=== PATIENT | female | born 2000 | race African-American/Black ===

== ENCOUNTER 2025-03-11 12:10 | Outpatient (CLI) | payer BC, OTHER, SELFPAY ==
[2025-03-11 13:14] LABS: Basophils Percent Auto 0.4 % (0.2-1.2); Eosinophils Absolute Auto 0.1 K/mm3 (0-0.3); Eosinophils Percent Auto 1.7 % (0-4.4); Hematocrit 36.6 % (37.0-47.0); Hemoglobin 12.3 g/dL (12.0-15.0); Immature Granulocyte Absolute 0.03 K/mm3 (0.00-0.031); Immature Granulocyte Percent A 0.6 % (0-0.5); Lymphocytes Absolute Auto 1.32 K/mm3 (0.9-3.2); Lymphocytes Percent Auto 24.8 % (18.3-44.2); Mean Corpuscular HGB Conc 33.6 g/dl (32-36); Mean Corpuscular Hemoglobin 31.8 pg (26-34); Mean Corpuscular Volume 94.6 fl (80-100); Monocytes Absolute Auto 0.5 K/mm3 (0.1-0.6); Monocytes Percent Auto 9.2 % (2.6-8.5); Neutrophils Absolute Auto 3.4 K/mm3 (1.3-6.7); Neutrophils Percent Auto 63.3 % (45.5-73.1); Platelet Count Result 265 k/mm3 (150-375); Red Blood Count 3.87 M/mm3 (4.2-5.4); White Blood Count 5.3 K/mm3 (4.5-10.0)
[2025-03-11 13:52] LABS: Syphilis IgG/IgM Antibody Negative (Negative)
[2025-03-11 13:55] LABS: Hepatitis B Surface Antigen Negative (Negative); Rubella IgG Antibody 11.5 IU/ML
[2025-03-11 14:02] LABS: HIV 1/2 Ab P24 Ag Result Negative (Negative)
[2025-03-13 03:38] LABS: CMV IgG Antibody >10.00 U/mL; Varicella IgG Antibody 9.49 S/CO
== END 2025-03-11 12:11 | disposition home or self-care (01) ==
LOC: ANHLAB 12:40
PROVIDERS: Visit Provider Obstetrics & Gynecology
DX: N91.2 Amenorrhea, unspecified (principal)
CPT/HCPCS: 36415; 81220; 81329; 84702; 85025; 85660; 86593; 86644; 86703; 86747; 86762; 86787; 86850; 86900; 86901; 87086; 87340; G0432

== ENCOUNTER 2025-04-10 08:29 | Emergency (ER) | payer OTHER, SELFPAY ==
[2025-04-10] VITALS (10 sets, daily range): BP systolic 112–145; BP diastolic 63–96; PULSE 83–113; RESP 16–20; TEMP 36.6; O2SAT 100
--- NOTE | ~2025-04-10 | CT_ITS ---
Non-contrast Head CT History: Syncope Technique: Axial non-contrast imaging of the brain was performed. Dose reduction technique was used on this scan by utilizing automated exposure control and iterative reconstruction technique. The dose -length product (DLP) was 605.33 mGy-cm. Findings: There is no evidence of intracranial hemorrhage, mass lesion, or acute infarct. Brain par enchyma appears normal. The ventricles and subarachnoid spaces are normal in size. The calvarium ap pears normal. The visualized paranasal sinuses and mastoid air cells are clear. Impression: No significant abnormality seen. Reviewed, dictated and finalized at location . Impression: No significant abnormality seen.
--- NOTE | ~2025-04-10 | XR_ITS ---
EXAMINATION: XR chest 2V DATE: 04/10/2025 09:11 INDICATION: Syncope. TECHNIQUE: frontal and lateral views of the chest were obtained. COMPARISON: None FINDINGS: The lungs are clear with no focal airspace opacities, pulmonary edema, pleural effusion or pneumothor ax. The cardiomediastinal silhouette is normal. There is lead shielding about the visualized upper ab domen. IMPRESSION: 1. No acute cardiopulmonary disease. Reviewed, dictated and finalized at location A.
--- NOTE | 2025-04-10 08:37 | ECG_ITS ---
Test Date: 2025-04-10 08:52:03 Measurements Intervals [place] Rate: 83 P: 57 NC: 155 QRS: 53 QRSD: 86 T: 34 QT: 348 QTc: 411 Interpretive Statements SINUS RHYTHM WITH SINUS ARRHYTHMIA MODERATE T-WAVE ABNORMALITY, CONSIDER ANTERIOR ISCHEMIA [-0.1+ mV T WAVE IN V3/V4] No previous ECG available for comparison Electronically Signed On 04-10-2025 15:07:49 CDT by Marilee Ordonez M.D.
[2025-04-10 08:57] LABS: Basophils Percent Auto 0.3 % (0.2-1.2); Eosinophils Absolute Auto 0.2 K/mm3 (0-0.3); Eosinophils Percent Auto 3.4 % (0-4.4); Hematocrit 30.9 % (37.0-47.0); Hemoglobin 10.3 g/dL (12.0-15.0); Immature Granulocyte Absolute 0.03 K/mm3 (0.00-0.031); Immature Granulocyte Percent A 0.4 % (0-0.5); Lymphocytes Absolute Auto 1.07 K/mm3 (0.9-3.2); Lymphocytes Percent Auto 14.9 % (18.3-44.2); Mean Corpuscular HGB Conc 33.3 g/dl (32-36); Mean Corpuscular Hemoglobin 32.3 pg (26-34); Mean Corpuscular Volume 96.9 fl (80-100); Mean Platelet Volume 8.8 fl (7.4-10.4); Monocytes Absolute Auto 0.6 K/mm3 (0.1-0.6); Monocytes Percent Auto 8.8 % (2.6-8.5); Neutrophils Absolute Auto 5.2 K/mm3 (1.3-6.7); Neutrophils Percent Auto 72.2 % (45.5-73.1); Platelet Count Result 233 k/mm3 (150-375); Red Blood Count 3.19 M/mm3 (4.2-5.4); Red Cell Distribution Width 13.2 % (11.5-14.5); White Blood Count 7.2 K/mm3 (4.5-10.0)
[2025-04-10 09:07] LABS: Alanine Aminotransferase 16 U/L (6-35); Albumin Level 3.9 g/dL (3.5-5.1); Alkaline Phosphatase 62 U/L (38-126); Anion Gap 10 mmol/L (4-12); Aspartate Amino Transferase 24 U/L (14-36); Bilirubin,Total 0.2 mg/dL (0.2-1.3); Blood Urea Nitrogen 9 mg/dL (7-17); Calcium 9.6 mg/dL (8.4-10.2); Carbon Dioxide 22 mmol/L (22-30); Chloride 105 mmol/L (98-107); Estimated CRCL calculation 130 ml/min; Estimated Glomerular Filt Rate > 60; Glucose 77 mg/dL (65-110); Potassium 3.7 mmol/L (3.4-5.0); Sodium 137 mmol/L (137-145)
[2025-04-10] MEDS: SODIUM CHLORIDE 0.9% IV 1,000 ML 999 ML IV CONT (09:24)
[2025-04-10 09:55] LABS: Troponin I < 0.012 ng/mL (0.000-0.034)
--- NOTE | 2025-04-10 10:23 | ED.SYNCOPE ---
HPI - Syncope General Chief Complaint: Syncope Stated Complaint: 20 weeks , passed out at work Time Seen by Provider: 04/10/25 09:10 Source: patient Mode of arrival: ambulatory Limitations: no limitations History of Present Illness HPI narrative: This is a 25-year-old female that presents to the emergency department after a syncopal episode this morning. Reports she was finishing a 9 hour shift. 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 She started to feel hot, had a mild throbbing discomfort in her head. She then woke up on the floor. Reports she has not passed out before. She is currently 20 weeks . This is her first . Denies chest pain, shortness of breath, palpitations. Related Data Home Medications ?Medication ?Instructions ?Recorded ?Confirmed ?Last Taken ?Type No Home Medications 03/31/25 03/31/25 Unknown History Allergies Allergy/AdvReac Type Severity Reaction Status Date / Time No Known Allergies Allergy Verified 03/31/25 14:25 Review of Systems Review of Systems: CONSTITUTIONAL: Denies fever EYES: Denies visual changes CARDIOVASCULAR: Denies chest pain, palpitations, or edema. RESPIRATORY: Denies dyspnea. GASTROINTESTINAL: Denies vomiting NEUROLOGIC: Denies numbness, or weakness. All systems reviewed & are unremarkable except as noted in HPI and below PMFSH Past Medical History Medical History PCR DNA positive for HSV1 Family History Family History Grandparent Hypertension paternal grandmother Mother H/O ovarian cancer Social History Social History Smoking status: Former smoker Second hand tobacco smoke exposure: No Smoking end date: 11/12/24 Alcohol intake: never Substance use: former Substance use type: marijuana Last use: 11/12/2024 Do You Feel Safe in your Home?: Yes Lack of Transportation: No Lack of Food: Often True Current Housing: I Have Housing Concerned About Future Housing: YES Difficulty Paying Gas/Electric Bills: YES Difficulty Paying for Meds: YES Currently Unemployed: No Education: Bachelor's Degree Difficulty w/ Childcare or Family Care: No Living arrangements: with roommate(s) Occupation/Education: occupation 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 HEAD: Normocephalic, atraumatic. EYES: PERRLA and EOMI. ENT: Nares clear, no rhinorrhea or epistaxis. Mucous membranes moist. Oropharynx without tonsillar hypertrophy exudate or other lesions. Bilateral TMs pearly gibson non-bulging NECK: Supple. No adenopathy or masses. CHEST: Clear to auscultation. No respiratory distress. No wheezes rales or rhonchi HEART: Regular rate and rhythm. No murmur heard. Normal peripheral pulses. ABDOMEN: Gravid, nontender, normal active bowel sounds. EXTREMITIES: Normal range of motion. No edema. Strength equal in bilateral upper and lower extremities (5/5) SKIN: Warm, dry, no rash. NEURO: No focal deficits. Alert and oriented x3. CN II-XII grossly intact PSYCH: Normal mood and affect Course Course Emergency Course: Patient updated on her workup and agrees with plan of care. 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 Encourage compression socks at work Date: 04/10/25 Vital Signs Vital signs: Vital Signs Temperature 97.9 F 04/10/25 08:40 Pulse Rate 95 04/10/25 08:40 Respiratory Rate 17 04/10/25 08:40 Blood Pressure 131/78 04/10/25 08:40 Pulse Oximetry 100 04/10/25 08:40 Oxygen Delivery Room Air 04/10/25 08:40 Temperature 97.9 F 04/10/25 08:40 Pulse Rate 83 04/10/25 11:31 Respiratory Rate 17 04/10/25 11:31 Blood Pressure 116/71 04/10/25 11:31 Pulse Oximetry 100 04/10/25 11:31 Oxygen Delivery Room Air 04/10/25 08:40 MDM - Syncope MDM Narrative Medical decision making narrative: Patient presents to the emergency department after a syncopal episode this morning. Patient had been standing for prolonged. After a long work shift. She does also endorse that she does not believe she kept up with her hydration and had not eaten much. This is also her 1st , she is currently 20 weeks. Normal heart tones noted. She does not have any related concerns. Her vitals are stable. She did get tachycardic with orthostatics, but her blood pressure went up. She was mildly dizzy at this time. She was hydrated with a L of IV fluids with relief. Cbc shows normocytic anemia hemoglobin 10.3. Metabolic panel without concerning findings. Urine without evidence of infection. EKG without acute changes and her baseline troponin is negative. CT brain without acute findings. Chest x-ray without acute cardiopulmonary abnormality. Patient was updated on her workup and agrees with plan of care. She is to follow up with her OB. She was given warnings to return to the ER Differential Diagnosis Differential diagnosis: Likely syncope due to orthostatic hypotension, vasovagal syncope and dehydration Lab Data Attestation: I reviewed the patient's lab results. 04/10/25 08:51 04/10/25 08:51 Labs: Lab Results 04/10/25 04/10/25 Range/Units 08:51 10:31 WBC 7.2 (4.5-10.0) K/mm3 RBC 3.19 L (4.2-5.4) M/mm3 Hgb 10.3 L (12.0-15.0) g/dL Hct 30.9 L (37.0-47.0) % MCV 96.9 (80-100) fl MCH 32.3 (26-34) pg MCHC 33.3 (32-36) g/dl RDW 13.2 (11.5-14.5) % Plt Count 233 (150-375) k/mm3 MPV 8.8 (7.4-10.4) fl Immature Gran % (Auto) 0.4 (0-0.5) % Neut % (Auto) 72.2 (45.5-73.1) % Lymph % (Auto) 14.9 L (18.3-44.2) % Richardson % (Auto) 8.8 H (2.6-8.5) % Eos % (Auto) 3.4 (0-4.4) % Baso % (Auto) 0.3 (0.2-1.2) % Lymph # (Auto) 1.07 (0.9-3.2) K/mm3 Richardson # (Auto) 0.6 (0.1-0.6) K/mm3 Eos # (Auto) 0.2 (0-0.3) K/mm3 Baso # (Auto) 0.0 (0.0-0.1) K/mm3 Abs Immat Gran (auto) 0.03 (0.00-0.031) K/mm3 Absolute Neuts (auto) 5.2 (1.3-6.7) K/mm3 Absolute Nucleated RBC 0.000 (0.0-0.012) K/mm3 Nucleated RBC % 0.0 (0.0-0.2) % Sodium 137 (137-145) mmol/L Potassium 3.7 (3.4-5.0) mmol/L Chloride 105 (98-107) mmol/L Carbon Dioxide 22 (22-30) mmol/L Anion Gap 10 (4-12) mmol/L BUN 9 (7-17) mg/dL Creatinine 0.50 L (0.7-1.0) mg/dL Estim Creat Clear Calc 130 ml/min Estimated GFR > 60 (59 - ) Glucose 77 (65-110) mg/dL Calcium 9.6 (8.4-10.2) mg/dL Total Bilirubin 0.2 (0.2-1.3) mg/dL AST 24 (14-36) U/L ALT 16 (6-35) U/L Alkaline Phosphatase 62 (38-126) U/L Troponin I < 0.012 (0.000-0.034) ng/mL Total Protein 7.0 (6.3-8.2) g/dL Albumin 3.9 (3.5-5.1) g/dL Urine Color Yellow (Yellow) Urine Appearance Clear (Clear) Urine pH 6.5 (5.0-9.0) Ur Specific Benson 1.009 (1.001-1.035) Urine Protein Negative (Negative) mg/dL Urine Glucose (UA) Negative (Negative) mg/dL Urine Ketones Negative (Negative) mg/dL Ur Blood (Man) Negative (Negative) Urine Nitrate Negative (Negative) Urine Bilirubin Negative (Negative) Urine Urobilinogen 0.2 (<2.0) mg/dL Leukocyte Esterase Rfl Negative (Negative) BRETT/UL Imaging Data Radiologist's impression: ITS Impressions Chest X-Ray 04/10/25 09:37 IMPRESSION: 1. No acute cardiopulmonary disease. Head CT 04/10/25 11:06 Impression: No significant abnormality seen. ECG Data EKG #1: ECG completion date: 04/10/25 EKG Interpretation: normal rate, sinus rhythm, no ST changes and normal QT Critical Care Time Critical Care Time Critical Care Time: No Discharge Plan Discharge Clinical Impression: Syncope Qualifiers: Syncope type: unspecified Qualified Code(s): R55 - Syncope and collapse Anemia Qualifiers: Anemia type: unspecified type Qualified Code(s): D64.9 - Anemia, unspecified Patient Disposition: Home Condition: Stable Instructions: Syncope (ED), Anemia (ED) Additional Instructions: Return to the emergency department if you experience fever, chest pain, shortness of breath, abdominal pain with nausea and vomiting, weakness, numbness, you pass out again, or any other symptoms that are concerning to you. Your blood work and imaging here are largely reassuring. You are mildly anemic Remain well hydrated. Small, frequent meals. Wear compression socks while you work Follow up with your OB Patient Language: Cypriot Prescriptions: No Action No Home Medications Follow-up/Referrals: Mirza Goyal MD [Physician] - UNKNOWN,DOCTOR [Primary Care Provider] -
--- NOTE | 2025-04-10 10:23 | PC.NURSE ---
patient ambulatory to restroom and back to bed.
[2025-04-10 10:51] LABS: Add Urine Microscopic? NO; Appearance Urine Clear (Clear); Bilirubin Urine Negative (Negative); Blood Urine Negative (Negative); Color Urine Yellow (Yellow); Glucose Urine UA Negative (Negative); Ketones Urine Negative (Negative); Leukocyte Esterase Ur Negative LEU/UL (Negative); Nitrate Urine Negative (Negative); Protein Urine Negative (Negative); Specific Grav Ur 1.009 (1.001-1.035); Urobilinogen Urine 0.2 mg/dL (<2.0); pH Urine 6.5 (5.0-9.0)
== END 2025-04-10 12:25 | disposition home or self-care (01) ==
PROVIDERS: Emergency Medicine; Emergency Provider Physician Assistant
DX: O99.012 Anemia complicating pregnancy, second trimester (principal); R55 Syncope and collapse; Z3A.20 20 weeks gestation of pregnancy
CPT/HCPCS: 36415; 70450; 71046; 80053; 81003; 84484; 85025; 93005; 96360; 99284; J7030

== ENCOUNTER 2025-06-29 11:12 | Outpatient (CLI) | payer OTHER, SELFPAY ==
[2025-06-29 12:46] LABS: Hematocrit 36.2 % (37.0-47.0); Hemoglobin 11.9 g/dL (12.0-15.0); Immature Granulocyte Percent A 0.7 % (0-0.5); Lymphocytes Absolute Auto 1.22 K/mm3 (0.9-3.2); Mean Corpuscular HGB Conc 32.9 g/dl (32-36); Mean Corpuscular Hemoglobin 31.5 pg (26-34); Mean Corpuscular Volume 95.8 fl (80-100); Nucleated Red Blood Cells Absolute Auto 0.000 K/mm3 (0.0-0.012); Nucleated Red Blood Cells Perc 0.0 % (0.0-0.2); Platelet Count Result 207 k/mm3 (150-375); Red Blood Count 3.78 M/mm3 (4.2-5.4); White Blood Count 5.7 K/mm3 (4.5-10.0)
[2025-06-29 13:05] LABS: Glucose 1 Hour PP 50gm Dose 100 mg/dL
[2025-06-29 13:33] LABS: Syphilis IgG/IgM Antibody Non-Reactive (Nonreactive)
[2025-06-29 13:46] LABS: HIV 1/2 Ab P24 Ag Result Negative (Negative)
== END 2025-06-29 11:13 | disposition home or self-care (01) ==
PROVIDERS: Visit Provider Student in an Organized Health Care Education/Training Program
DX: Z34.90 Encounter for supervision of normal pregnancy, unspecified, unspecified trimester (principal)
CPT/HCPCS: 36415; 82947; 85025; 86593; 86703; G0432

== ENCOUNTER 2025-08-17 08:36 | Outpatient (RCR) | payer OTHER, SELFPAY ==
[2025-07-27 16:50] VITALS: BP 108/64; PULSE 89
[2025-07-29 08:21] VITALS: BP 115/75; PULSE 91
[2025-08-03 16:40] VITALS: BP 113/64; PULSE 92
[2025-08-06 09:09] VITALS: BP 116/71; PULSE 96
[2025-08-14 14:17] VITALS: BP 133/72; PULSE 96
--- NOTE | ~2025-08-17 | US_ITS ---
EXAMINATION: US OB BPP wo non-stress DATE: 07/27/2025 16:47 INDICATION: Intrauterine growth retardation during third trimester . TECHNIQUE: Real-time pelvic ultrasound was performed. The interpreting radiologist was not present for the study. COMPARISON: None. FINDINGS: There is a single living fetus in vertex presentation. The placenta is fundal and not low-lying. heart rate is 147 beats per minute (bpm). Amniotic fluid volume is subjectively normal with normal deepest vertical pocket measurement of 3.5 cm. Biophysical profile performed by the technologist: breathing (30 sec sustained breathing in 30 minutes): 2 out of 2 movement (3 gross body movements in 30 minutes): 2 out of 2 tone (one episode of adwwigk-fxxexoxyg-jvddvam limb movement): 2 out of 2 Amniotic fluid pocket (2 cm): 2 out of 2 Total score: 8 out of 8 IMPRESSION: 1. Single living fetus in vertex presentation with heart rate of 147 bpm. 2. Biophysical profile 8 out of 8. Reviewed, dictated and finalized at location A.
--- NOTE | ~2025-08-17 | US_ITS ---
EXAMINATION: US OB BPP wo non-stress DATE: 08/03/2025 16:31 CDT INDICATION: IUGR TECHNIQUE: Real-time transabdominal obstetric ultrasound. FINDINGS: 07/29/2025 There is a single living fetus in vertex presentation. The placenta is fundal without placenta previa. cardiac activity and movement is noted with a heart rate of 138 beats per minute. RAYNE is normal measuring 9.8 cm. Biophysical profile: breathin of 2 movement: 2 of 2 tone: 2 of 2 Amniotic flud pocket: 2 of 2 Total score: 8 of 8 IMPRESSION: 1. Single living intrauterine in vertex presentation. 2: Total biophysical profile score of 8/8. Reviewed, dictated and finalized at location O.
--- NOTE | ~2025-08-17 | US_ITS ---
EXAM: US OB BPP wo non-stress - 07/29/2025 8:37 CDT History: 25 years old Female with IUGR Comparison: None available. Technique Real time transabdominal obstetric sonographic imaging was performed. Findings A single live intrauterine gestation is identified. Lie: longitudinal Presentation: vertex heart rate: 158 beats per minute RAYNE: 12.7 cm, which is between the 7.9 cm corresponding to 5 th and 24.9 cm corresponding to 95 th percentiles. Biophysical profile: breathing movement: 2 Gross body movement: 2 tone: 2 Qualitative AFV: 2 Total BPP score: 8 of 8. Impression Total biophysical profile score is 8 out of 8. Reviewed, dictated and finalized at location N. Impression Total biophysical profile score is 8 out of 8.
--- NOTE | ~2025-08-17 | US_ITS ---
EXAMINATION: US OB BPP wo non-stress DATE: 08/14/2025 14:21 INDICATION: Small for gestational age. Third trimester. TECHNIQUE: Real-time pelvic ultrasound was performed. COMPARISON: Ultrasound 08/06/2025 FINDINGS: There is a single living fetus in vertex presentation. The placenta is posterior. heart rate is 145 beats per minute (bpm). The amniotic fluid index is 5.3 cm, which is low (5th percentile is 7.5 cm). Biophysical profile performed by the technologist: breathing (30 sec sustained breathing in 30 minutes): 2 out of 2 movement (3 gross body movements in 30 minutes): 2 out of 2 tone (one episode of whzrvhe-nhjadzccc-mklbumo limb movement): 2 out of 2 Amniotic fluid pocket (2 cm): 2 out of 2 Total score: 8 out of 8 IMPRESSION: 1. Single living fetus in vertex presentation. 2. Biophysical profile 8 out of 8. 3. Oligohydramnios. Reviewed, dictated and finalized at location E.
--- NOTE | ~2025-08-17 | US_ITS ---
EXAMINATION: US OB BPP wo non-stress DATE: 08/17/2025 09:53 INDICATION: Intrauterine growth retardation during third trimester TECHNIQUE: Real-time pelvic ultrasound was performed. The interpreting radiologist was not present for the study. COMPARISON: None. FINDINGS: There is a single living fetus in vertex presentation. The placenta is posterior. heart rate is 137 beats per minute (bpm). Normal amniotic fluid index of 9.0 cm (5th%-95%: 7.3-23.9 cm at 38 weeks estimated gestational age) Biophysical profile performed by the technologist: breathing (30 sec sustained breathing in 30 minutes): 2 out of 2 movement (3 gross body movements in 30 minutes): 2 out of 2 tone (one episode of sgjfwpz-hkmvbemho-wzilfpr limb movement): 2 out of 2 Amniotic fluid pocket (2 cm): 2 out of 2 Total score: 8 out of 8 IMPRESSION: 1. Single living fetus in vertex presentation with heart rate of 137 bpm. 2. Biophysical profile 8 out of 8. 3. Normal amniotic fluid index of 9.0 cm. Reviewed, dictated and finalized at location A.
--- NOTE | ~2025-08-17 | US_ITS ---
EXAMINATION: US OB BPP wo non-stress DATE: 08/06/2025 08:44 INDICATION: Intrauterine growth restriction. Third trimester. TECHNIQUE: Real-time pelvic ultrasound was performed. COMPARISON: Ultrasound 08/03/2025 FINDINGS: There is a single living fetus in vertex presentation. The placenta is fundal. heart rate is 129 beats per minute (bpm). The amniotic fluid index is 9.4 cm, which is normal. Biophysical profile performed by the technologist: breathing (30 sec sustained breathing in 30 minutes): 2 out of 2 movement (3 gross body movements in 30 minutes): 2 out of 2 tone (one episode of zhrnhaa-bqbpnyprg-rqnchac limb movement): 2 out of 2 Amniotic fluid pocket (2 cm): 2 out of 2 Total score: 8 out of 8 IMPRESSION: 1. Single living fetus in vertex presentation. 2. Biophysical profile 8 out of 8. Reviewed, dictated and finalized at location E.
[2025-08-17 09:21] VITALS: BP 124/71; PULSE 97
== END 2025-08-22 09:33 | disposition other institution (70) ==
LOC: ANHOBOP 08:36
PROVIDERS: Visit Provider Obstetrics & Gynecology
DX: O36.5930 Maternal care for other known or suspected poor fetal growth, third trimester, not applicable or unspecified (principal); Z3A.35 35 weeks gestation of pregnancy
CPT/HCPCS: 59025; 76819

== ENCOUNTER 2025-08-19 15:45 | Inpatient (IN) | payer OTHER, SELFPAY ==
[2025-08-19] VITALS (23 sets, daily range): BP systolic 103–136; BP diastolic 58–98; PULSE 77–166; TEMP 36.2–36.8; BMI 28.4
[2025-08-19 16:46] LABS: Hematocrit 37.4 % (37.0-47.0); Hemoglobin 12.3 g/dL (12.0-15.0); Immature Granulocyte Percent A 0.6 % (0-0.5); Lymphocytes Absolute Auto 1.49 K/mm3 (0.9-3.2); Mean Corpuscular HGB Conc 32.9 g/dl (32-36); Mean Corpuscular Hemoglobin 30.8 pg (26-34); Mean Corpuscular Volume 93.7 fl (80-100); Nucleated Red Blood Cells Absolute Auto 0.000 K/mm3 (0.0-0.012); Nucleated Red Blood Cells Perc 0.0 % (0.0-0.2); Platelet Count Result 222 k/mm3 (150-375); Red Blood Count 3.99 M/mm3 (4.2-5.4); White Blood Count 6.4 K/mm3 (4.5-10.0)
--- NOTE | 2025-08-19 16:52 | LDADM ---
This patient, Zandra Hatch, was admitted to Labor/Delivery/Recovery 106 on 08/19/25 at 15:45. Plans for labor, pain management and were discussed with patient. Patient/family oriented to hospital policies and general routines including ID bracelet, bed and alarms, visiting hours, pain management, procedures, bathroom and other care routines, personal items, smoking policy, room service/diet and guest tray routines, security routines, and visiting hours. Patient/Family are encouraged to report perceived risks to care and to ask questions if they do not understand what they are told or what they should do. See OBIX for further documentation.
[2025-08-19] MEDS: DINOPROSTONE 10 MG VAG INSERT VAGINAL (17:20)
[2025-08-19 17:38] LABS: Syphilis IgG/IgM Antibody Non-Reactive (Nonreactive)
[2025-08-20] VITALS (302 sets, daily range): BP systolic 70–137; BP diastolic 34–101; PULSE 57–206; RESP 16–18; TEMP 36.2–37.7; O2SAT 90–100
[2025-08-20] MEDS: LACTATED RINGERS 1,000 ML 125 ML IV CONT ×3 (05:45→16:33)
[2025-08-20] MEDS: OXYTOCIN 30 UNITS/NS 500 ML 30 UNITS/500 ML BAG IV CONT (05:49)
[2025-08-20] MEDS: ONDANSETRON INJ 4 MG/2 ML VIAL IV PUSH ×2 (06:05→20:33)
[2025-08-20] MEDS: fentaNYL CITRATE INJ (*CRX) 100 MCG/2 ML VIAL IV PUSH (07:51)
--- NOTE | 2025-08-20 14:34 | WPDANESEPPF ---
Anes - Initial Pre Proc Eval Procedure: labor epidural Date/Time: 08/20/25 14:34 Surgeon: Mirza Goyal MD Pre Op Diagnosis: labor pain Pre Op Diagnosis: IOL Patient Data Age: 25 Gender: F Height: 1.68 m Weight: 80 kg Last Vital Signs Temp 36.6 C 08/20/25 12:04 Pulse 68 08/20/25 14:30 BP 104/50 L 08/20/25 14:30 Pulse Ox 100 08/20/25 14:30 O2 Del Method Room Air 08/19/25 16:47 Allergies Allergy/AdvReac Type Severity Reaction Status Date / Time No Known Allergies Allergy Verified 08/19/25 17:46 Home Medications ?Medication ?Instructions ?Recorded ?Confirmed ?Type vit no.95-ferrous 1 tablet PO DAILY 08/05/25 08/19/25 History fumarate 28 mg-folic acid 800 mcg tablet () Laboratory Tests 08/19/25 16:16 WBC 6.4 K/mm3 (4.5-10.0) RBC 3.99 L M/mm3 (4.2-5.4) Hgb 12.3 g/dL (12.0-15.0) Hct 37.4 % (37.0-47.0) MCV 93.7 fl (80-100) MCH 30.8 pg (26-34) MCHC 32.9 g/dl (32-36) RDW 13.8 % (11.5-14.5) Plt Count 222 k/mm3 (150-375) MPV 8.9 fl (7.4-10.4) Immature Gran % (Auto) 0.6 H % (0-0.5) Neut % (Auto) 59.8 % (45.5-73.1) Lymph % (Auto) 23.1 % (18.3-44.2) Clinch % (Auto) 13.4 H % (2.6-8.5) Eos % (Auto) 2.5 % (0-4.4) Baso % (Auto) 0.6 % (0.2-1.2) Lymph # (Auto) 1.49 K/mm3 (0.9-3.2) Clinch # (Auto) 0.9 H K/mm3 (0.1-0.6) Eos # (Auto) 0.2 K/mm3 (0-0.3) Baso # (Auto) 0.0 K/mm3 (0.0-0.1) Abs Immat Gran (auto) 0.04 H K/mm3 (0.00-0.031) Absolute Neuts (auto) 3.9 K/mm3 (1.3-6.7) Absolute Nucleated RBC 0.000 K/mm3 (0.0-0.012) Nucleated RBC % 0.0 % (0.0-0.2) Syphilis IgG/IgM Ab Non-reactive (Nonreactive) Blood Type O Positive Antibody Screen Negative Patient hx anesthesia problems: none Family hx anesthesia problems: none Results Review: All pre-operative results and documents have been reviewed as part of the pre-operative evaluation. [facility] Past Medical History Medical History PCR DNA positive for HSV1 Family History Family History Grandparent Hypertension paternal grandmother Mother H/O ovarian cancer Social History Social History Smoking status: Former smoker Smokeless tobacco user: other Second hand tobacco smoke exposure: No Smoking end date: 11/12/24 Alcohol intake: never Substance use: former Substance use type: marijuana Last use: 11/12/2024 Do You Feel Safe in your Home?: Yes Lack of Transportation: No Lack of Food: Never True Current Housing: I Have Housing Concerned About Future Housing: No Difficulty Paying Gas/Electric Bills: No Difficulty Paying for Meds: No Currently Unemployed: No Education: Bachelor's Degree Difficulty w/ Childcare or Family Care: No Living arrangements: with roommate(s) Occupation/Education: occupation 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 Informed Consent: The patient's anesthetic plan and its attendant risks and benefits were discussed with the patient/family/POA. Questions were solicited and answers provided to the satisfaction of the patient/family/POA.
[2025-08-20] MEDS: FAMOTIDINE 20 MG/2 ML VIAL IV PUSH (18:00)
[2025-08-20] MEDS: PHENYLEPHRINE 1,000 MCG/10 ML SYRINGE 100 MCG IV PUSH (19:47)
[2025-08-20] MEDS: TERBUTALINE SULFATE 1 MG/ML VIAL 0.25 MG SUB-Q (19:49)
[2025-08-21] VITALS (36 sets, daily range): BP systolic 111–143; BP diastolic 59–119; PULSE 73–214; RESP 16–20; TEMP 36.3–36.9; O2SAT 96–100
[2025-08-21] MEDS: OXYTOCIN 30 UNITS/NS 500 ML 30 UNITS/500 ML BAG 999 UNITS IV CONT (01:07)
--- NOTE | 2025-08-21 01:19 | WPDHPUPDATE1 ---
History and Physical Update Update Date/Time: 08/21/25 01:19 History and Physical has been reviewed, including an updated exam of the patient. There are NO changes in the patient's condition. Risks, benefits, and alternatives have been discussed and questions answered. Patient agrees to proceed with procedure.
--- NOTE | 2025-08-21 01:19 | WPDOBADMIT ---
Obstetrics - Admit Note Admission Note: record reviewed. No pertinent additions to the history and/or any subsequent changes in the physical findings that are not consistent with the expected course of the were found. Additions to the history and/or subsequent changes in the physical findings follow. None.
--- NOTE | 2025-08-21 01:20 | PM.OBPRVD ---
OB - Vaginal Delivery Note Procedure Delivery date: 08/21/25 Events: Intrauterine Growth Restriction (IUGR) and Oligohydramnios Induction method: Per Cervidil Protocol Delivery augmentation: Rupture of Membranes and Pitocin Delivery monitor: External FHT and Internal Uterine Route of delivery: Episiotomy description: None Laceration Description: Periurethral Specimen: Yes Quantitative Blood Loss (ml): 300 Anesthesia type: Epidural Disposition: Floor Complications: No immediate complications Narrative: Patient was prepped and draped in the usual manner for this procedure. Maternal expulsive efforts readily delivered vertex over intact perineum. The rest baby was delivered without difficulty, cord was clamped and cut, placenta delivered spontaneously. Cervix vagina vulva were inspected with small periurethral laceration which was not repaired. Uterus was well contracted with minimal bleeding. Immediate postoperative condition of mother and baby both were excellent. Baby Gestational Age by Date: 38 Infant gender: Female presentation: vertex position: Right Occiput Anterior Placenta delivery description: Spontaneous Cord Vessel Description: 3 Vessels
[2025-08-21] MEDS: OXYTOCIN 30 UNITS/NS 500 ML 30 UNITS/500 ML BAG 125 UNITS IV CONT (01:35)
[2025-08-21] MEDS: IBUPROFEN 600 MG TABLET PO ×4 (03:29→19:43)
--- NOTE | 2025-08-21 08:10 | S_PTH ---
PATIENT: Zandra Hatch LOC: [facility] U#:[id number] AGE/SX: ROOM: 89 RE08/19/[address]: Reid Garber MD : [id number] BED: 00 DIS: 08/22/2025 SPEC #: [id number] RECD: 08/21/25 08:12 STATUS: MARIA D REBrenda #: [id number] GUY: 08/21/25 08:[address]: Mirza Goyal DEPT: [facility] Surgical RECD BY: Dee Tinajero ENTERED: 08/21/25 08:12 SP TYPE: Surgical OTHR DR: OPTICAL ENGINEERING TECHNICIAN PHYSICIAN Tissues: A - Placenta Procedures: Hematoxylin and Eosin Stain Gross and Microscopic Level 5
--- NOTE | 2025-08-21 08:15 | PC.NURSE ---
Patient called out for assistance. She attempted to latch baby to the left breast first but was unable. She says that baby did feed on the left at a previous feeding. Baby was latched to the right breast in a cradle hold. Mom declines pain with latch. Baby looks to be a little shallow but when we adjusted the latch, it was apparent that mom's nipple is very large and baby is only able to take the nipple in for latch on. Mom continues to deny pain and baby suckles vigorously. Mom is encouraged to offer the second breast if desired. She will call out for additional assistance as needed. Primary RN updated.
--- NOTE | 2025-08-21 08:19 | PM.OBPNVD ---
OB - PN: Subj Subjective Date/time seen: 08/21/25 08:19 S: Pain well controlled. No significant bleeding. Breast-feeding is well. O: VSS afebrile Fundus appropriately tender Lab noted A: 6hours status post vaginal delivery P: Routine care OB - PN: Obj Data Labs 08/19/25 16:16 OB - PN A/P Time Spent With Patient Time: Total time spent is greater than 50% in coordination of care (as documented) at patient's floor/unit and/or counseling patient:
[2025-08-21] MEDS: MULTIVIT/MIN/PREN/FOL AC/IRON TABLET 1 TAB PO (09:39)
[2025-08-21] MEDS: ACETAMINOPHEN 325 MG TABLET 650 MG PO ×2 (09:39→17:01)
--- NOTE | 2025-08-21 12:20 | PC.NURSE ---
Patient called out for a painful latch assessment. Baby was latched to the left breast and mom states that it feels different and pinches. We broke suction and relatched and mom states that it feels better now. Reviewed with mom how to observe the lips for flanging and how to break suction and latch again any time there is pain with latching. Baby most likely had her tongue up when latching and was causing smashing of the nipple. Mom is comfortable in cradle hold and baby suckles vigorously. Patient is encouraged to call out for any and all assistance needed. Primary RN updated.
[2025-08-22 04:24] LABS: Hematocrit 30.6 % (37.0-47.0); Hemoglobin 10.1 g/dL (12.0-15.0)
[2025-08-22 08:04] VITALS: BP 118/65; PULSE 78; RESP 16; TEMP 36.6; O2SAT 99
--- NOTE | 2025-08-22 09:00 | PC.NURSE ---
Consulted with mother concerning needs and she shared her ability to independently latch infant optimally without pain. Per mother is latching better with latch adjustments made yesterday. Mother is feeding appropriately for growth of infant and understands stimulating to eat if needed. has had appropriate feedings in the last 24 hours meets the outcomes for weight, output, blood sugar and jaundice at this time. Reinforced understanding of milk production, transition of milk, signs of adequate intake, transition of stool, prevention/relief of engorgement, plugged ducts, mastitis, responsive watching for feeding cues, the different methods of stimulating infant to breastfeed 1-3 hours after the start of the last feeding, community resources, and when to call a provider using the resource of the feeding sheet along with the mom and baby guide. Mother voiced understanding of the information shared, is confident to continue effectively her at home, when to call for assistance, denies any additional assistance or education at this time. Reported to the Primary RN.
[2025-08-22] MEDS: MULTIVIT/MIN/PREN/FOL AC/IRON TABLET 1 TAB PO (09:43)
--- NOTE | 2025-08-22 11:23 | P.PNOB_ITS ---
OB - PN: Subj Subjective Date/time seen: 08/22/25 11:23 Narrative: Pain OK. Would like to go home. OB - PN: Obj Data Labs 08/22/25 03:55 Labs: Laboratory Results - last 24 hr 08/22/25 03:55 Hgb 10.1 L Hct 30.6 L OB - PN A/P Plan day: 1 Comments: A: PPD#1, doing well. P: Home to f/u 6 weeks. Exam 2 Psych: Other: AVSS ABD soft, nontender, fundus firm EXT nontender
--- NOTE | 2025-08-22 11:38 | PM.OBDSVD ---
DS: Admitting Diagnosis Discharge Date 08/22/25 Admitting Diagnosis IUP at term DS: Discharge Diagnosis Discharge Diagnosis (1) (normal spontaneous vaginal delivery): Code(s): O80 - Encounter for full-term uncomplicated delivery Status: Acute OB - DS: Summary OB Procedures : NST OB Procedures Intrapartum: Spontaneous Vag Delivery OB Procedures: : None Peripartum Data Laceration Description: Periurethral Episiotomy description: None Time Spent with Patient Time attestation: Total time spent providing and/or coordinating discharge services: DS: Data Data Completed and Pending Pending studies at discharge: Pending at discharge 08/21/25 08:10 Surgical [PTH] Routine Labs on day of discharge: Labs from last 24 hours 08/22/25 03:55 Hgb 10.1 L Hct 30.6 L Discharge Plan Discharge Attending physician on discharge: Mirza Goyal Discharging Clinician: Reid Garber Patient Disposition: Home Activity: pelvic rest Diet: regular Discharge Instructions: Call or return if temperature above 100.4? F, increased abdominal pain, increased vaginal bleeding or any new problems. Patient Language: [place] Stand Alone Forms: General Discharge Information Follow-up/Referrals: Mirza Goyal MD [Physician, DATA WAREHOUSING ARCHITECT] - Call for Appointment Discharge Medications: New ibuprofen 600 mg tablet 600 mg PO Q6H PRN (Reason: cramps) Qty: 30 0RF Continued PNV no.95-ferrous fumarate-FA [] 28 mg iron- 800 mcg tablet 1 tablet PO DAILY Date of admission: 08/19/25 15:45 Primary Care Provider: PHYSICIAN,DRY HOUSE ATTENDANT Admitting Provider: Mirza Goyal Attending physician on admission: Mirza Goyal Condition: Stable
[2025-08-22] MEDS: TETANUS,DIPHTHERIA,AC PERTUSSIS ADULT (0.5 ML) BOOSTRIX IM (14:23)
[2025-08-22] MEDS: INFLUENZA VACCINE 45 MCG/0.5 ML SYRINGE IM (14:24)
[2025-08-25 11:26] VITALS: BP 132/81; PULSE 86; RESP 18; TEMP 36.9; O2SAT 100
== END 2025-08-22 14:31 | disposition home or self-care (01) | DRG 806 ==
LOC: ANHOB2 08-22 12:30 → ANHLDR 08-25 10:41
PROVIDERS: Admitting Provider Obstetrics & Gynecology; Visit Provider Obstetrics & Gynecology
DX: O36.5930 Maternal care for other known or suspected poor fetal growth, third trimester, not applicable or unspecified (principal); O41.03X0 Oligohydramnios, third trimester, not applicable or unspecified; Z37.0 Single live birth; O98.32 Other infections with a predominantly sexual mode of transmission complicating childbirth; Z3A.38 38 weeks gestation of pregnancy; A60.09 Herpesviral infection of other urogenital tract; O71.82 Other specified trauma to perineum and vulva; Z23 Encounter for immunization
CPT/HCPCS: 36415; 85014; 85018; 85025; 86593; 86850; 86900; 86901; 88307; 90471; 90656; 90715; A9270; G0008; J2371; J2405; J2590; J2795; J3010; J3105; J7120